=== PATIENT | female | born 1970 | race Caucasian/White ===

== ENCOUNTER → 2020-09-19 | Outpatient (CLI) | payer OTHER ==
[~2020-09-19] MED LIST: ALDACTONE25 MG PO; FERROUS SULFAT325 MG PO; FOLIC ACID 1 MG1 MG PO; FUROSEMIDE40 MG PO; LASIX TAB 20 MG20 MG PO; LASIX20 MG PO; MAG-OX 400 TAB400 MG PO; MULTI-VITAMIN1 EACH PO; PROTONIX40 MG PO; TRANEXAMIC ACI650 MG PO; VITAMIN B-1100 M1 PO; VITAMIN B-121000 MC2 SL
== END ==
LOC: KOH-I 11:02
DX: M25.561 Pain in right knee (principal); M25.562 Pain in left knee
CPT/HCPCS: 73562

== ENCOUNTER → 2020-09-23 | Outpatient (CLI) | payer OTHER ==
[2020-09-23 16:07] LABS: HEMOGLOBIN 7.3 gm/dl (12.3-15.3)
== END ==
LOC: LAB 15:22
PROVIDERS: Internal Medicine Hematology & Oncology
DX: D50.9 Iron deficiency anemia, unspecified (principal); R06.02 Shortness of breath; R53.83 Other fatigue
CPT/HCPCS: 85014; 85018; 86850; 86900; 86901; 86920; P9016

== ENCOUNTER → 2020-09-24 | Outpatient (CLI) | payer OTHER ==
[~2020-09-24] VITALS: Ht 154.9 cm; Wt 62.1 kg
== END ==
LOC: OPSV 07:54
DX: D50.9 Iron deficiency anemia, unspecified (principal); R06.02 Shortness of breath; R53.83 Other fatigue
CPT/HCPCS: 36430; 96374; 96375; J1940; J7050; P9016

== ENCOUNTER 2020-10-22 12:58 | Outpatient (CLI) | payer OTHER ==
[~2020-10-22] VITALS: Ht 180.3 cm; Wt 60.3 kg
[~2020-10-22 12:58] MED LIST changes: -TRANEXAMIC ACI650 MG PO
[2020-10-22 15:34] LABS: HEMOGLOBIN 7.8 gm/dl (12.3-15.3)
[2021-01-12] MEDS ORDERED: TRANEXAMIC ACI650 MG PO (08:22)
== END 2020-10-23 03:00 | disposition home or self-care (01) ==
LOC: OPSV 12:58 → MED SURG 4 15:15 → OPSV 10-23 03:00
PROVIDERS: Internal Medicine Hematology & Oncology
DX: D50.9 Iron deficiency anemia, unspecified (principal)
CPT/HCPCS: 36415; 36430; 85014; 85018; 86850; 86900; 86901; 86920; 96375; J1940; J7050; P9016

== ENCOUNTER → 2020-11-11 | Outpatient (CLI) | payer OTHER ==
[~2020-11-11] MED LIST changes: +TRANEXAMIC ACI650 MG PO
== END ==
LOC: LAB 15:05
PROVIDERS: Registered Nurse
DX: D50.9 Iron deficiency anemia, unspecified (principal); R53.83 Other fatigue
CPT/HCPCS: 36415; 85014; 85018; 86850; 86900; 86901

== ENCOUNTER → 2020-11-18 | Outpatient (CLI) | payer OTHER ==
[2020-11-18 16:18] LABS: HEMOGLOBIN 8.5 gm/dl (12.3-15.3)
== END ==
LOC: LAB 15:17
PROVIDERS: Internal Medicine Hematology & Oncology
DX: D50.9 Iron deficiency anemia, unspecified (principal)
CPT/HCPCS: 36415; 85014; 85018; 86850; 86900; 86901; 86920

== ENCOUNTER → 2020-11-19 | Outpatient (CLI) | payer OTHER ==
[2020-11-19 09:39] LABS: HEMOGLOBIN 8.1 gm/dl (12.3-15.3)
== END ==
LOC: OPSV 08:00
PROVIDERS: Internal Medicine Hematology & Oncology
DX: D50.9 Iron deficiency anemia, unspecified (principal)
CPT/HCPCS: 36415; 85014; 85018

== ENCOUNTER 2020-12-08 10:09 | Outpatient (CLI) | payer OTHER ==
[~2020-12-08] VITALS: Ht 180.3 cm; Wt 62.1 kg
[~2020-12-08 10:09] MED LIST changes: -TRANEXAMIC ACI650 MG PO
[2020-12-08 11:24] LABS: HEMOGLOBIN 6.5 gm/dl (12.3-15.3)
[2021-01-12] MEDS ORDERED: TRANEXAMIC ACI650 MG PO (08:22)
== END 2020-12-08 18:18 | disposition home or self-care (01) ==
LOC: OPSV 10:09 → MED SURG 4 14:53 → OPSV 18:18
PROVIDERS: Internal Medicine Hematology & Oncology
DX: D50.9 Iron deficiency anemia, unspecified (principal)
CPT/HCPCS: 36415; 36430; 85014; 85018; 86850; 86900; 86901; 86920; J1940; J7050; P9016

== ENCOUNTER → 2021-01-07 | Outpatient (CLI) | payer OTHER ==
[~2021-01-07] MED LIST changes: +TRANEXAMIC ACI650 MG PO
[2021-01-07 16:36] LABS: HEMOGLOBIN 7.2 gm/dl (12.3-15.3); RED BLOOD COUNT 2.95 M/UL (4.00-5.10); WHITE BLOOD COUNT 8.5 K/UL (4.5-11.0)
== END ==
LOC: LAB 15:25
PROVIDERS: Internal Medicine Hematology & Oncology
DX: D50.9 Iron deficiency anemia, unspecified (principal)
CPT/HCPCS: 36415; 85027; 86850; 86900; 86901; 86920; J7050; P9016

== ENCOUNTER → 2021-01-08 | Outpatient (CLI) | payer OTHER ==
[~2021-01-08] VITALS: Ht 154.9 cm; Wt 62.1 kg
== END ==
LOC: OPSV 07:52
DX: D50.9 Iron deficiency anemia, unspecified (principal)
CPT/HCPCS: 36430; 96374; 96375; J1940; P9016

== ENCOUNTER → 2021-01-12 | Day surgery (SDC) | payer OTHER | END | disposition home or self-care (01) | LOC: OR 06:57 | DX: I87.8 Other specified disorders of veins (principal); D50.9 Iron deficiency anemia, unspecified; K21.9 Gastro-esophageal reflux disease without esophagitis; K74.60 Unspecified cirrhosis of liver; M19.90 Unspecified osteoarthritis, unspecified site; F41.8 Other specified anxiety disorders; Z88.2 Allergy status to sulfonamides; Z82.49 Family history of ischemic heart disease and other diseases of the circulatory system; Z82.61 Family history of arthritis | CPT/HCPCS: 71045; 77001; C1769; C1788; J0690; J1100; J2001; J2250; J2405; J2704; J3010; J7040; J7120 ==

== ENCOUNTER → 2021-02-24 | Outpatient (CLI) | payer OTHER ==
[2021-02-24 14:41] LABS: HEMOGLOBIN 7.7 gm/dl (12.3-15.3)
== END ==
LOC: LAB 13:55 → OPSV 13:55
PROVIDERS: Internal Medicine Hematology & Oncology
DX: D50.9 Iron deficiency anemia, unspecified (principal)
CPT/HCPCS: 36591; 85014; 85018; 86850; 86900; 86901; 86920; P9016

== ENCOUNTER → 2021-02-25 | Outpatient (CLI) | payer OTHER ==
[~2021-02-25] VITALS: Ht 154.9 cm; Wt 62.1 kg
== END ==
LOC: OPSV 07:00
DX: D50.9 Iron deficiency anemia, unspecified (principal); Z45.2 Encounter for adjustment and management of vascular access device
CPT/HCPCS: 36430; 96375; J1642; J7050; P9016

== ENCOUNTER → 2021-07-02 | Outpatient (CLI) | payer OTHER | LOC: LAB 13:36 | DX: N39.0 Urinary tract infection, site not specified (principal) | CPT/HCPCS: 81001 ==

== ENCOUNTER → 2021-08-24 | Outpatient (CLI) | payer OTHER ==
[2021-08-25 08:14] LABS: ESTRADIOL <5.0 pg/mL (.); LUTEINIZING HORMONE(LH) 54.8 mIU/mL (.); TESTOSTERONE, SERUM <3 ng/dL (4-50)
== END ==
LOC: OPSV 11:06
PROVIDERS: Nurse Practitioner
DX: N91.2 Amenorrhea, unspecified (principal)
CPT/HCPCS: 36591; 82670; 83001; 83002; 84403; J1642

== ENCOUNTER → 2021-10-05 | Outpatient (CLI) | payer OTHER | LOC: KOH-I 14:35 | DX: M25.561 Pain in right knee (principal); M22.41 Chondromalacia patellae, right knee; S83.001A Unspecified subluxation of right patella, initial encounter; M25.461 Effusion, right knee | CPT/HCPCS: 73721 ==

== ENCOUNTER → 2021-12-10 | Outpatient (CLI) | payer OTHER ==
[2021-12-10 11:09] LABS: HEMOGLOBIN 9.1 gm/dl (12.3-15.3); RED BLOOD COUNT 3.24 M/UL (4.00-5.10); WHITE BLOOD COUNT 7.1 K/UL (4.5-11.0)
== END ==
LOC: OPSV 10:37
PROVIDERS: Internal Medicine
DX: I78.0 Hereditary hemorrhagic telangiectasia (principal); D50.9 Iron deficiency anemia, unspecified; Z45.2 Encounter for adjustment and management of vascular access device
CPT/HCPCS: 36591; 82728; 85027; J1642

== ENCOUNTER → 2022-03-19 | Outpatient (CLI) | payer OTHER ==
[~2022-03-19] VITALS: Ht 154.9 cm; Wt 62.1 kg
== END ==
LOC: OPSV 10:53
DX: I78.0 Hereditary hemorrhagic telangiectasia (principal)
CPT/HCPCS: 96365; J1642; J1756; J7030

== ENCOUNTER → 2022-03-26 | Outpatient (CLI) | payer OTHER ==
[~2022-03-26] VITALS: Ht 154.9 cm; Wt 62.1 kg
== END ==
LOC: OPSV 10:46
DX: I78.0 Hereditary hemorrhagic telangiectasia (principal)
CPT/HCPCS: 96365; J1642; J1756; J7030

== ENCOUNTER → 2022-04-01 | Outpatient (CLI) | payer OTHER | LOC: OPSV 10:50 | DX: I78.0 Hereditary hemorrhagic telangiectasia (principal) | CPT/HCPCS: 96365; J1642; J1756; J7030 ==

== ENCOUNTER → 2022-04-09 | Outpatient (CLI) | payer OTHER ==
[~2022-04-09] VITALS: Ht 154.9 cm; Wt 62.1 kg
== END ==
LOC: OPSV 10:35
DX: I78.0 Hereditary hemorrhagic telangiectasia (principal); D50.0 Iron deficiency anemia secondary to blood loss (chronic)
CPT/HCPCS: 96365; 96366; J1642; J1756; J7030

== ENCOUNTER → 2022-06-11 | Outpatient (CLI) | payer OTHER ==
[~2022-06-11] VITALS: Ht 180.3 cm; Wt 62.1 kg
== END ==
LOC: OPSV 14:00
DX: I78.0 Hereditary hemorrhagic telangiectasia (principal)
CPT/HCPCS: 96365; 96366; J1642; J1756; J7030